=== PATIENT | female | born 1970 | race Caucasian/White ===

== ENCOUNTER 2016-10-30 06:24 | Emergency (ER) | payer SELFPAY ==
[~2016-10-30] VITALS: Ht 172.7 cm; Wt 106.8 kg
[~2016-10-30 06:24] MED LIST: ASCA500; CALCTAB5 PO; MULT-506 PO
[2016-10-30 06:26] VITALS: TEMP 36.4; Ht 172.7 cm; Wt 106.8 kg
[2016-10-30] MEDS ORDERED: ADENOSINE IV SOLN 3 MG/ML 2 ML VIAL ONE ×2 (06:34→06:35)
[2016-10-30 06:38] VITALS: O2SAT 100
[2016-10-30] MEDS ORDERED: METOPROLOL TARTRATE 1 MG/ML VIAL IV STA (06:45)
--- NOTE | 2016-10-30 06:51 | EMERGENCY ROOM VISIT NOTE ---
History Report prepared by Nabilibe: Melly Todd Under the Supervision of: Dr. Emory Kirk D.O. First contact with patient: 06:34 Chief Complaint: CARDIAC ASSESSMENT Stated Complaint: POSSIBLE HEARTATTACK Nursing Triage Summary: pt reports started with a fluttering feeling in chest and fast HR at 0500, increased exertional sob History of Present Illness The patient is a 46 year old female who presents to the Emergency Room with complaints of a constant rapid heart beat that started 3 hours ago. The patient states that shes had this before happen to her before but she is usually able to slow her heart beat down herself. The patient notes that she has had 2 episodes like this in the past week.She states that she has been able to get her heart to slow down in her previous episodes by inverting herself on a reclining bed. The patient notes that she has had short episodes once every week for the past year and that and that this is the longest episode she has ever had. Per nursing note, the patient also had shortness of breath upon arrival. 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 Source of History: patient Onset: 3 hours ago Quality: other (rapid heart rate) Timing: constant Associated Symptoms: + SOB Review of Systems See HPI for pertinent positives & negatives. A total of 10 systems reviewed and were otherwise negative. Past Medical & Surgical Medical Problems: (1) Right knee injury Family History no pertinent family history stated. Social History Marital Status: Occupation Status: employed Current/Historical Medications Scheduled Metoprolol Succinate (Toprol Xl), 1 TAB PO DAILY Allergies Coded Allergies: No Known Allergies (Verified , 10/30/16) Physical Exam Vital Signs Date Time Temp Pulse Resp B/P (MAP) Pulse Ox O2 Delivery O2 Flow Rate FiO2 10/30/16 09:58 82 16 142/83 10/30/16 09:30 84 16 124/99 98 Room Air 10/30/16 07:40 88 16 128/82 10/30/16 07:02 100 133/93 10/30/16 07:02 100 16 133/93 95 Room Air 10/30/16 06:39 122 18 160/115 100 Room Air 10/30/16 06:38 116 10/30/16 06:38 100 Room Air 10/30/16 06:37 171 20 143/96 100 Room Air 10/30/16 06:37 100 Room Air 10/30/16 06:36 174 10/30/16 06:36 171 10/30/16 06:35 167 10/30/16 06:26 36.4 176 20 100 Room Air Physical Exam CONSTITUTIONAL/VITAL SIGNS: Reviewed / noted above. GENERAL: Non-toxic in appearance. INTEGUMENTARY: Warm, dry, and [place]. HEAD: Normocephalic. EYES: without scleral icterus or trauma. ENT/OROPHARYNX: clear and moist. LYMPHADENOPATHY/NECK: Is supple without lymphadenopathy or meningismus. RESPIRATORY: Lungs clear and equal. CARDIOVASCULAR: Tachycardic regular rhythm. GI/ABDOMEN: Soft and nontender. No organomegaly or pulsatile mass. No rebound or guarding. Normal bowel sounds. EXTREMITIES: Warm and well perfused. BACK: No CVA tenderness. NEUROLOGICAL: Intact without focal deficits. PSYCHIATRIC: normal affect. MUSCULOSKELETAL: Normally developed with good muscle tone. Medical Decision & Procedures ER Provider Diagnostic Interpretation: Radiology results as stated below per my review and radiologist interpretation: CHEST ONE VIEW PORTABLE FINDINGS: Cardiomediastinal silhouette normal. Lungs and pleural spaces clear. Osseous structures normal. Upper abdomen normal. IMPRESSION: 1. No acute cardiopulmonary disease. Electronically signed by: Michael Valenzuela M.D. Laboratory Results 10/30/16 06:40 Red Blood Count 5.00, Mean Corpuscular Volume 84.6, Mean Corpuscular Hemoglobin 28.2, Mean Corpuscular Hemoglobin Concent 33.3, Mean Platelet Volume 9.7, Neutrophils (%) (Auto) 65.6, Lymphocytes (%) (Auto) 24.5, Monocytes (%) (Auto) 6.4, Eosinophils (%) (Auto) 3.0, Basophils (%) (Auto) 0.2, Neutrophils # (Auto) 7.56, Lymphocytes # (Auto) 2.81, Monocytes # (Auto) 0.73, Eosinophils # (Auto) 0.34, Basophils # (Auto) 0.02 10/30/16 06:40 Test 10/30/16 06:40 10/30/16 08:25 White Blood Count 11.49 K/uL (4.8-10.8) Red Blood Count 5.00 M/uL (4.2-5.4) Hemoglobin 14.1 g/dL (12.0-16.0) Hematocrit 42.3 % (37-47) Mean Corpuscular Volume 84.6 fL (80-100) Mean Corpuscular Hemoglobin 28.2 pg (25-34) Mean Corpuscular Hemoglobin Concent 33.3 g/dl (32-36) Platelet Count 292 K/uL (130-400) Mean Platelet Volume 9.7 fL (7.4-10.4) Neutrophils (%) (Auto) 65.6 % Lymphocytes (%) (Auto) 24.5 % Monocytes (%) (Auto) 6.4 % Eosinophils (%) (Auto) 3.0 % Basophils (%) (Auto) 0.2 % Neutrophils # (Auto) 7.56 K/uL (1.4-6.5) Lymphocytes # (Auto) 2.81 K/uL (1.2-3.4) Monocytes # (Auto) 0.73 K/uL (0.11-0.59) Eosinophils # (Auto) 0.34 K/uL (0-0.5) Basophils # (Auto) 0.02 K/uL (0-0.2) RDW Standard Deviation 40.1 fL (36.4-46.3) RDW Coefficient of Variation 13.3 % (11.5-14.5) Immature Granulocyte % (Auto) 0.3 % Immature Granulocyte # (Auto) 0.03 K/uL (0.00-0.02) Prothrombin Time 10.1 SECONDS (9.0-12.0) Prothromb Time International Ratio 0.9 (0.9-1.1) Activated Partial Thromboplast Time 29.5 SECONDS (21.0-31.0) Partial Thromboplastin Ratio 1.1 Anion Gap 11.0 mmol/L (3-11) Est Creatinine Clear Calc Drug Dose 96.7 ml/min Estimated GFR () 85.9 Estimated GFR (Non- 74.2 BUN/Creatinine Ratio 9.1 (10-20) Calcium Level 8.8 mg/dl (8.5-10.1) Total Bilirubin 0.4 mg/dl (0.2-1) Direct Bilirubin 0.1 mg/dl (0-0.2) Aspartate Amino Transf (AST/SGOT) 80 U/L (15-37) Alanine Aminotransferase (ALT/SGPT) 68 U/L (12-78) Alkaline Phosphatase 83 U/L (45-117) Total Creatine Kinase 268 U/L (26-192) Creatine Kinase MB 5.5 ng/ml (0.5-3.6) Creatine Kinase MB Ratio 2.1 (0-3.0) Total Protein 8.1 gm/dl (6.4-8.2) Albumin 3.4 gm/dl (3.4-5.0) Lipase 160 U/L (73-393) Thyroid Stimulating Hormone (TSH) 2.930 uIu/ml (0.300-4.500) Troponin I 0.132 ng/ml (0-0.045) Laboratory results as stated above per my review. Medications Administered Medications (Trade) Dose Ordered Sig/Keith Route Start Time Stop Time Status Last Admin Dose Admin Adenosine (Adenosine IV) 6 mg STK-MED ONCE .ROUTE 10/30/16 06:34 10/30/16 06:35 DC 10/30/16 06:45 6 MG Metoprolol Tartrate (Lopressor Iv) 5 mg NOW STAT IV 10/30/16 06:45 10/30/16 06:46 DC 10/30/16 07:02 5 MG ECG Indication: tachycardia Rate (beats per minute): 166 Rhythm: SVT Findings: no acute ischemic change, no ectopy ED Course 0636: Previous medical records were reviewed. The patient was evaluated in room B2. A complete history and physical examination was performed. 0634: Adenosine 6 mg .ROUTE 0636: Adenosine 12 mg .ROUTE 0645: Lopressor Iv 5 mg IV. 0741: I rechecked on the patient she is resting comfortably. 0742: Discussed the patient's case with Dr. Pickens- [facility] [place] 0942: On reevaluation, the patient is resting. I discussed the results and findings with the patient. She verbalized agreement of the treatment plan. The patient was discharged home. Medical Decision the differential that was considered includes acute myocardial infarction, acute coronary syndrome, myocarditis, pericarditis, pericardial effusions / tamponade, esophageal perforation, thoracic aortic dissection, pulmonary embolism, pneumonia, pneumothorax, pancreatitis, shingles, acute cholecystitis, perforated abdominal viscus. This is a 46-year-old female who presents to the ED with a chief complaint of elevated heart rate and chest discomfort. Symptoms started this morning around 3 AM. She states that this is occurred previously. Over the past year, the patient has had about 1 month event that she was able to resolve in a short time. Recently it has been more frequent and has been occurring multiple times per month. Today's episode was the longest episode lasting about 4 hours. The patient on her initial twelve-lead EKG shows an SVT at a rate of about 170. She was given 6 mg of IV adenosine and converted her to normal sinus rhythm. The patient's blood work revealed an unremarkable CBC. Chemistry panel was unremarkable. Troponin was initially elevated at 0.092. This was repeated about an hour and a half later and it was 0.132. This is likely related to the patient's SVT. The patient's twelve-lead EKG during SVT did not show any ischemic changes and her EKG following conversion did not show any ischemic changes. The patient's symptoms have completely resolved and she is not experiencing any chest pains or shortness of breath. She denies having any exertional chest pains or shortness of breath in the recent past. The patient does not appear to have any ongoing ischemia or issues since her SVT has resolved. I spoke with Dr. Pickens about the patient. He will see her in follow-up this week. She will be prescribed Toprol-XL. She will return for any recurrence of symptoms. Medication Reconcilliation Current Medication List: was personally reviewed by me Blood Pressure Screening Patient's blood pressure: Normal blood pressure Blood pressure disposition: Did not require urgent referral Consults Time Called: 0740 Consulting Physician: Dr. Pickens- [facility] [place] Returned Call: 0742 Discussed the patient's case. Impression Primary Impression: SVT (supraventricular tachycardia) Additional Impression: Elevated troponin Scribe Attestation The scribe's documentation has been prepared under my direction and personally reviewed by me in its entirety. I confirm that the note above accurately reflects all work, treatment, procedures, and medical decision making performed by me. Departure Information Dispostion Home / Self-Care Prescriptions Metoprolol Succinate (TOPROL XL) 25 Mg Tab 1 TAB PO DAILY for 30 Days, #30 TAB 5 Refills Prov: Emory Kirk D.O. 10/30/16 Referrals Cleopatra Rey M.D. (PCP) Forms IMPORTANT VISIT INFORMATION Patient Instructions My [facility], Understanding Supraventricular Tachycardia SVT Additional Instructions Toprol-XL as prescribed. Return for any recurrence of symptoms or any new symptoms. Follow-up with [facility] cardiology this week for recheck. Problem Qualifiers
[2016-10-30 06:56] LABS: BASO % 0.2 %; BASO ABS # 0.02 K/uL (0-0.2); COMPLETE YES; HEMATOCRIT 42.3 % (37-47); IG% 0.3 %; LYMPH % 24.5 %; LYMPH ABS # 2.81 K/uL (1.2-3.4); MEAN CELL VOLUME 84.6 fL (80-100); MEAN CORPUSCULAR HEMOGLOBIN 28.2 pg (25-34); MEAN CORPUSCULAR HGB CONC 33.3 g/dl (32-36); MEAN PLATELET VOLUME 9.7 fL (7.4-10.4); MONO % 6.4 %; NEUT % 65.6 %; PLATELET COUNT 292 K/uL (130-400); WHITE BLOOD COUNT 11.49 K/uL (4.8-10.8)
[2016-10-30 07:17] LABS: INR 0.9 (0.9-1.1); PARTIAL THROMBOPLASTIN RATIO 1.1; PROTHROMBIN TIME (PATIENT) 10.1 SECONDS (9.0-12.0)
[2016-10-30 07:21] LABS: BUN/CREATININE RATIO 9.1 (10-20); CALCIUM 8.8 mg/dl (8.5-10.1); CREATININE 0.92 mg/dl (0.60-1.20); POTASSIUM 3.7 mmol/L (3.5-5.1)
[2016-10-30 07:39] LABS: CKMB/CK RATIO 2.1 (0-3.0); THYROID STIMULATING HORMONE 2.93 uIu/ml (0.300-4.500)
--- NOTE | 2016-10-30 07:46 | DIAGNOSTIC IMAGING REPORT ---
CHEST ONE VIEW PORTABLE CLINICAL HISTORY: 46 years-old Female presenting with Evaluate Fever/Sepsis. TECHNIQUE: Portable upright AP view of the chest was obtained. COMPARISON: None. FINDINGS: Cardiomediastinal silhouette normal. Lungs and pleural spaces clear. Osseous structures normal. Upper abdomen normal. IMPRESSION: 1. No acute cardiopulmonary disease. Electronically signed by: Michael Valenzuela M.D. 10/30/2016 7:45 AM Dictated Date/Time: 10/30/2016 7:44 AM
[2016-10-30 09:30] VITALS: O2SAT 98
[2016-10-30] MEDS ORDERED: METO1TAB31 PO (09:38)
[2016-10-30 09:58] VITALS: BP 142/83; PULSE 82
== END 2016-10-30 09:59 | disposition home or self-care (01) ==
LOC: C.EDB 06:25
DX: I47.1 Supraventricular tachycardia (principal); R79.89 Other specified abnormal findings of blood chemistry